=== PATIENT | male | born 1990 ===

== ENCOUNTER 2019-01-09 19:12 | Emergency (ER) | payer SELFPAY ==
[~2019-01-09] VITALS: Ht 172.7 cm; Wt 86.4 kg
[2019-01-09 19:45] LABS: GLUCOSE,POINT OF CARE 82 MG/DL (70-110)
[2019-01-09] MEDS ORDERED: DiphenhydrAMINE HCL 50 MG/ML VIAL IM ONE (19:45)
[2019-01-09] MEDS ORDERED: HALOPERIDOL LACTATE 5 MG/ML VIAL IM ONE (19:45)
[2019-01-09] MEDS ORDERED: LORazepam 2 MG/ML VIAL IM ONE (19:45)
[2019-01-09 20:31] LABS: BASOPHILS % (AUTO) 0.7 % (0.0-2.0); EOSINOPHILS % (AUTO) 2.9 % (1.0-6.0); HEMATOCRIT 44.5 % (41-53); LYMPHOCYTES # (AUTO) 1.4 K/uL (1.0-4.8); LYMPHOCYTES % (AUTO) 23.7 % (22.0-44.0); MEAN CORPUSCULAR HEMOGLOBIN 31.3 pg (26.0-34.0); MEAN CORPUSCULAR HGB CONC 33.8 G/dL (31.0-37.0); MEAN CORPUSCULAR VOLUME 93 fL (80-100); MONOCYTES # (AUTO) 0.5 K/uL (0.1-1.0); MONOCYTES % (AUTO) 8.1 % (2.0-9.0); NEUTROPHILS # (AUTO) 3.7 K/uL (1.8-7.7); NEUTROPHILS % (AUTO) 64.6 % (40.0-70.0); PLATELET COUNT (AUTO) 299 K/uL (150-450); RED CELL DISTRIBUTION WIDTH 12.9 % (11.5-14.5)
[2019-01-09 20:53] LABS: ALANINE AMINOTRANSFERASE 20 U/L (12-78); ALBUMIN 4.1 g/dL (3.4-5.0); ALKALINE PHOSPHATASE 70 U/L (46-116); ANION GAP 12 mmol/L (8-16); ASPARTATE AMINOTRANSFERASE 33 U/L (15-37); BILIRUBIN,TOTAL 1.4 mg/dL (0.1-1.0); CALCIUM, TOTAL 8.8 mg/dL (8.8-10.5); CARBON DIOXIDE 25 mmol/L (22-29); CHLORIDE 106 mmol/L (98-107); CREATININE 1.19 mg/dL (0.60-1.30); GLOMERULAR FILTR. RATE CALC 52 mL/min (>60); GLUCOSE,RANDOM 120 mg/dL (70-110); POTASSIUM 3.8 mmol/L (3.5-5.1); SODIUM SERUM 143 mmol/L (136-145); TOTAL PROTEIN, SERUM 7.1 g/dL (6.4-8.2); UREA NITROGEN, BLOOD 15 mg/dL (7-18)
[2019-01-09 20:55] LABS: SALICYLATE < 2.8 mg/dL (2.8-20.0)
[2019-01-09 21:07] LABS: ACETAMINOPHEN < 2 mcg/mL (10-30)
[2019-01-09 21:52] LABS: AMPHET/METH SCREEN,URINE POSITIVE (NEGATIVE); BARBITURATE SCREEN, URINE NEGATIVE (NEGATIVE); BENZODIAZEPINES SCREEN,URINE NEGATIVE (NEGATIVE); CANNABINOID SCREEN,URINE NEGATIVE (NEGATIVE); COCAINE SCREEN,URINE NEGATIVE (NEGATIVE); METHADONE SCREEN, URINE NEGATIVE (NEGATIVE); OPIATE SCREEN,URINE NEGATIVE (NEGATIVE)
[2019-01-09 21:53] LABS: PHENCYCLIDINE SCREEN,URINE NEGATIVE (NEGATIVE)
[2019-01-09 22:50] LABS: CREATINE KINASE, TOTAL ONLY 791 U/L (39-308)
[2019-01-10 12:56] VITALS: BP 111/65
== END 2019-01-10 13:04 | disposition home or self-care (01) ==
LOC: EMS 19:14 → EDBD 19:14 → EMS 01-10 13:04
DX: F15.159 Other stimulant abuse with stimulant-induced psychotic disorder, unspecified (principal); R41.82 Altered mental status, unspecified; F15.10 Other stimulant abuse, uncomplicated; F79 Unspecified intellectual disabilities
CPT/HCPCS: 36415; 80053; 80307; 82550; 82962; 85025; 96372; 99291; G0480; J1200; J1630; J2060; 51701; G0481